=== PATIENT | female | born 1995 | race Caucasian/White ===

== ENCOUNTER 2017-03-17 14:12 | Emergency (ER) | payer MEDICAID ==
[~2017-03-17] VITALS: Ht 157.5 cm; Wt 79.0 kg
[~2017-03-17 14:12] MED LIST: IBUP-1223 PO; OMEP20CA9 PO; OXYC-302 PO; PREN1TAB60 PO
[2017-03-17 15:39] LABS: BASOPHILS # (AUTO) 0.02 x10^3/uL (0-0.1); BASOPHILS % (AUTO) 0 % (0-1); EOSINOPHILS # (AUTO) 0.24 x10^3/uL (0-0.4); EOSINOPHILS % (AUTO) 3 % (1-7); LYMPHOCYTES # (AUTO) 2.11 x10^3/uL (1-3.4); LYMPHOCYTES % (AUTO) 30 % (22-44); MD NO; MEAN CORPUSCULAR HEMOGLOBIN 29.6 pg (27.0-34.8); MEAN CORPUSCULAR HGB CONC 33.8 g/dL (32.4-35.8); MEAN CORPUSCULAR VOLUME 87.5 fL (80-100); MEAN PLATELET VOLUME 8.9 fL (7.4-10.4); MONOCYTES # (AUTO) 0.57 x10^3/uL (0.2-0.8); MONOCYTES % (AUTO) 8 % (2-9); NEUTROPHILS # (AUTO) 4.21 x10^3/uL (1.8-6.8); NEUTROPHILS % (AUTO) 59 % (42-75); PLATELET COUNT 267 x10^3/uL (130-400); RED BLOOD COUNT 5.02 x10^6/uL (3.82-5.3); RED CELL DISTRIBUTION WIDTH 11.9 % (9.6-15.2)
[2017-03-17 15:47] LABS: CULTURE INDICATED? YES; MICROSCOPIC INDICATED
[2017-03-17 16:07] LABS: ALBUMIN 3.8 g/dL (3.4-5.0); ANION GAP 9 mmol/L (5-15); CALCIUM 9.5 mg/dL (8.5-10.1); CHLORIDE 106 mmol/L (98-107)
[2017-03-17 16:25] LABS: ALANINE AMINOTRANSFERASE 23 U/L (12-78); ALKALINE PHOSPHATASE 62 U/L (45-117); BILIRUBIN,TOTAL 0.2 mg/dL (0.2-1.0); CREATININE 0.61 mg/dL (0.55-1.02); TOTAL PROTEIN 8.4 g/dL (6.4-8.2)
[2017-03-17 16:53] VITALS: BP 108/71
== END 2017-03-17 16:56 | disposition home or self-care (01) ==
LOC: ED 16:50
DX: O20.0 Threatened abortion (principal); Z3A.11 11 weeks gestation of pregnancy
CPT/HCPCS: 36415; 76801; 80053; 81001; 84702; 85025; 86901; 87086; 99285

== ENCOUNTER 2017-07-06 16:44 | Observation (INO) | payer MEDICAID ==
[~2017-07-06] VITALS: Ht 157.5 cm; Wt 86.3 kg
[2017-07-06] MEDS ORDERED: TERBUTALINE 1 MG/ML, 1ML ONE (17:07)
[2017-07-06] MEDS ORDERED: TERBUTALINE 1 MG/ML, 1ML SQ ONE (17:30)
[2017-07-06] MEDS ORDERED: LACTATED RINGERS 1,000 ML IV SCH (17:30)
[2017-07-06] MEDS ORDERED: LACTATED RINGERS 1,000 ML IVBOLUS ONE (17:30)
[2017-07-06 17:32] VITALS: BP 116/60
[2017-07-06 18:11] LABS: CULTURE INDICATED? NO; MICROSCOPIC NOT IND
[2017-07-09] MEDS ORDERED: PREN1TAB60 PO (19:01)
[2017-07-09] MEDS ORDERED: OMEP10CA4 PO (19:07)
== END 2017-07-06 18:35 | disposition home or self-care (01) ==
LOC: LDOP 16:44 → LDIP 17:12
PROVIDERS: ADMIT Obstetrics & Gynecology; ATTEND Obstetrics & Gynecology
DX: O26.892 Other specified pregnancy related conditions, second trimester (principal); R10.9 Unspecified abdominal pain; Z3A.27 27 weeks gestation of pregnancy
CPT/HCPCS: 59025; 81003; 84112; 96360; 96372; G0378; J3105; J7120; 96361

== ENCOUNTER 2017-07-31 14:45 | Outpatient (CLI) | payer MEDICAID ==
[~2017-07-31] VITALS: Ht 157.5 cm; Wt 86.4 kg
[~2017-07-31 14:45] MED LIST changes: +OMEP10CA4 PO
[2017-07-31 15:39] VITALS: BP 123/78
[2017-07-31 16:23] LABS: MICROSCOPIC INDICATED
== END 2017-07-31 16:56 | disposition home or self-care (01) ==
LOC: LDOP 14:45
PROVIDERS: ATTEND Obstetrics & Gynecology
DX: O26.893 Other specified pregnancy related conditions, third trimester (principal); R10.9 Unspecified abdominal pain; Z3A.30 30 weeks gestation of pregnancy
CPT/HCPCS: 59025; 81001; 84112; 99211; G0463

== ENCOUNTER 2017-09-12 19:51 | Observation (INO) | payer MEDICAID ==
[~2017-09-12] VITALS: Ht 157.5 cm; Wt 91.0 kg
[2017-09-12] MEDS ORDERED: OXYTOCIN 30U/ 0.9% NaCL 500ML 500 ML IV ONE (19:59)
[2017-09-12] MEDS ORDERED: D5%-LACTATED RINGERS 1,000 ML IV SCH (19:59)
[2017-09-12] MEDS ORDERED: LACTATED RINGERS 1,000 ML IV SCH (19:59)
[2017-09-12] MEDS ORDERED: FENTANYL PF 100 MCG/2ML IV PRN (20:00)
[2017-09-12] MEDS ORDERED: FENTANYL PF 100 MCG/2ML IVPush PRN (20:00)
[2017-09-12] MEDS ORDERED: ONDANSETRON 2MG/ML, 2ML IVPush PRN (20:00)
[2017-09-12] MEDS ORDERED: CALCIUM CARBONATE 500 MG TAB.CHEW PO PRN (20:00)
[2017-09-12] MEDS ORDERED: NEWBORN KIT ONE (20:05)
[2017-09-12] MEDS ORDERED: LIDOCAINE/PF 1%, 30ML ONE (20:05)
[2017-09-12] MEDS ORDERED: MISOPROSTOL 200 MCG TABLET ONE (20:05)
[2017-09-12] MEDS ORDERED: OXYTOCIN 30U/ 0.9% NaCL 500ML 500 ML ONE (20:05)
[2017-09-12] MEDS ORDERED: ONDANSETRON ODT 4 MG ONE (20:18)
[2017-09-12 20:24] LABS: BASOPHILS % (AUTO) 0 % (0-1); EOSINOPHILS # (AUTO) 0.19 x10^3/uL (0-0.4); EOSINOPHILS % (AUTO) 2 % (1-7); LYMPHOCYTES # (AUTO) 1.93 x10^3/uL (1-3.4); LYMPHOCYTES % (AUTO) 23 % (22-44); MD NO; MEAN CORPUSCULAR HEMOGLOBIN 25.4 pg (27.0-34.8); MEAN CORPUSCULAR HGB CONC 31.7 g/dL (32.4-35.8); MEAN CORPUSCULAR VOLUME 80.1 fL (80-100); MEAN PLATELET VOLUME 9.1 fL (7.4-10.4); MONOCYTES # (AUTO) 0.73 x10^3/uL (0.2-0.8); MONOCYTES % (AUTO) 9 % (2-9); NEUTROPHILS # (AUTO) 5.58 x10^3/uL (1.8-6.8); NEUTROPHILS % (AUTO) 66 % (42-75); PLATELET COUNT 221 x10^3/uL (130-400); RED BLOOD COUNT 4.15 x10^6/uL (3.82-5.3); RED CELL DISTRIBUTION WIDTH 14.2 % (9.6-15.2)
[2017-09-12] MEDS ORDERED: PLEASE ENTER HEIGHT AND WEIGHT MC SCH (20:30)
[2017-09-16] MEDS ORDERED: OXYC-302 PO (10:40)
[2017-09-16] MEDS ORDERED: IBUP-1222 PO (10:40)
== END 2017-09-13 00:45 | disposition home or self-care (01) ==
LOC: LDOP 19:51 → LDIP 20:04 → INTOOBSV 20:04
PROVIDERS: ADMIT Obstetrics & Gynecology; ATTEND Obstetrics & Gynecology
DX: O62.9 Abnormality of forces of labor, unspecified (principal); O26.893 Other specified pregnancy related conditions, third trimester; R10.9 Unspecified abdominal pain; Z3A.00 Weeks of gestation of pregnancy not specified
CPT/HCPCS: 36415; 59025; 85025; 86850; 86870; 86900; G0378; 99211; G0463

== ENCOUNTER 2017-12-12 17:51 | Emergency (ER) | payer MEDICAID ==
[~2017-12-12] VITALS: Ht 157.5 cm; Wt 89.2 kg
[~2017-12-12 17:51] MED LIST changes: +IBUP-1222 PO
[2017-12-12 18:50] VITALS: BP 123/82
[2017-12-12 19:07] LABS: MICROSCOPIC INDICATED
[2017-12-12 19:08] LABS: CULTURE INDICATED? YES; HCG UR SG 1.036 (1.003-1.030)
== END 2017-12-12 19:33 | disposition home or self-care (01) ==
LOC: ED 19:31
DX: N93.8 Other specified abnormal uterine and vaginal bleeding (principal)
CPT/HCPCS: 81001; 81025; 87086; 87147; 99284

== ENCOUNTER 2019-02-02 18:07 | Emergency (ER) | payer MEDICAID, OTHER ==
[~2019-02-02] VITALS: Ht 157.5 cm; Wt 93.6 kg
[~2019-02-02 18:07] MED LIST changes: -OMEP10CA4 PO; +OMEP10CA5 PO
[2019-02-02 18:39] VITALS: BP 127/73
--- NOTE | 2019-02-02 19:11 | NUR ---
plug paster: Pt ambulated independently to ED room 13 from [facility] in [facility] at this time.
[2019-02-02 20:29] LABS: MICROSCOPIC AUTO
[2019-02-02 20:31] LABS: CULTURE INDICATED? YES
[2019-02-02 20:45] LABS: BASOPHILS # (AUTO) 0.01 x10^3/uL (0-0.1); BASOPHILS % (AUTO) 0 % (0-1); EOSINOPHILS # (AUTO) 0.23 x10^3/uL (0-0.4); EOSINOPHILS % (AUTO) 5 % (1-7); LYMPHOCYTES # (AUTO) 1.77 x10^3/uL (1-3.4); LYMPHOCYTES % (AUTO) 35 % (22-44); MD NO; MEAN CORPUSCULAR HEMOGLOBIN 28.4 pg (27.0-34.8); MEAN CORPUSCULAR HGB CONC 33.8 g/dL (32.4-35.8); MEAN CORPUSCULAR VOLUME 84.1 fL (80-100); MEAN PLATELET VOLUME 8.7 fL (7.4-10.4); MONOCYTES # (AUTO) 0.55 x10^3/uL (0.2-0.8); MONOCYTES % (AUTO) 11 % (2-9); NEUTROPHILS # (AUTO) 2.53 x10^3/uL (1.8-6.8); NEUTROPHILS % (AUTO) 50 % (42-75); PLATELET COUNT 287 x10^3/uL (130-400); RED BLOOD COUNT 5.12 x10^6/uL (3.82-5.3); RED CELL DISTRIBUTION WIDTH 12.6 % (9.6-15.2)
[2019-02-02 20:57] LABS: ALANINE AMINOTRANSFERASE 27 U/L (12-78); ALBUMIN 3.7 g/dL (3.4-5.0); ANION GAP 4 mmol/L (5-15); CALCIUM 8.7 mg/dL (8.5-10.1); CHLORIDE 111 mmol/L (98-107); CREATININE 0.77 mg/dL (0.55-1.02)
[2019-02-02 21:01] LABS: ALKALINE PHOSPHATASE 75 U/L (45-117); BILIRUBIN,TOTAL 0.4 mg/dL (0.2-1.0); TOTAL PROTEIN 7.7 g/dL (6.4-8.2)
== END 2019-02-02 21:22 | disposition home or self-care (01) ==
LOC: ED 20:00
DX: N30.01 Acute cystitis with hematuria (principal); R11.0 Nausea
CPT/HCPCS: 36415; 80053; 81001; 83690; 84703; 85025; 87086; 93005; 99284

== ENCOUNTER 2019-12-20 11:57 | Emergency (ER) | payer SELFPAY ==
[~2019-12-20] VITALS: Ht 157.5 cm; Wt 89.9 kg
[2019-12-20 12:05] VITALS: BP 125/64
--- NOTE | 2019-12-20 12:18 | NUR ---
SUNDAY FALK AT BEDSIDE FOR INITIAL ASSESSMENT.
[2019-12-20] MEDS ORDERED: ONDANSETRON 2MG/ML, 2ML IVPush ONE (12:30)
[2019-12-20] MEDS ORDERED: MORPHINE SULFATE 4 MG/ML, 1ML IVPush PRN (12:30)
[2019-12-20] MEDS ORDERED: SODIUM CHLORIDE FLUSH 10ML SYR IVF ONE (12:30)
--- NOTE | 2019-12-20 12:30 | NUR ---
late entry for 1230: pt presents to ED with c/o right lower abd pain and vag bleeding onset this am, pt states lmp 2 weeks ago. pt has hx tubal ligation. pt is a&o, resps even and unlabored. nadn. pt updated with POC, agreeable.
--- NOTE | 2019-12-20 12:42 | NUR ---
PT TO US AT THIS TIME. PT AGREES TO WAIT UNTIL RETURN TO BE MEDICATED WITH MORPHINE/ZOFRAN.
[2019-12-20 13:22] LABS: MICROSCOPIC INDICATED
[2019-12-20] MEDS ORDERED: ONDANSETRON 2MG/ML, 2ML ONE (13:23)
[2019-12-20] MEDS ORDERED: MORPHINE SULFATE 4 MG/ML, 1ML ONE (13:23)
--- NOTE | 2019-12-20 13:30 | NUR ---
upon return from US, pt declining pain medicine. pt is a&o, resps even and unlabored. dion. lab at bedside for draw.
[2019-12-20 13:42] LABS: BASOPHILS % (AUTO) 0 % (0-1); EOSINOPHILS % (AUTO) 2 % (1-7); LYMPHOCYTES % (AUTO) 20 % (22-44); MONOCYTES % (AUTO) 5 % (2-9); NEUTROPHILS % (AUTO) 72 % (42-75); PLATELET COUNT 269 x10^3/uL (130-400); RED BLOOD COUNT 4.76 x10^6/uL (3.82-5.3); RED CELL DISTRIBUTION WIDTH 13.3 % (9.6-15.2)
[2019-12-20 13:44] LABS: MD NO
[2019-12-20 13:51] LABS: ALBUMIN 3.7 g/dL (3.4-5.0); ANION GAP 6 mmol/L (5-15); CALCIUM 9.3 mg/dL (8.5-10.1); CHLORIDE 110 mmol/L (98-107); CREATININE 0.85 mg/dL (0.55-1.02)
[2019-12-20] MEDS ORDERED: KETOROLAC 30 MG/1 ML IM ONE (14:00)
--- NOTE | 2019-12-20 14:53 | NUR ---
TASK RN: DC EDUCATION PROVIDED, PT DEMONSTRATES UNDERSTANDING. PT AMBULATED STEADILY TO DC WITH RN
== END 2019-12-20 14:55 | disposition home or self-care (01) ==
LOC: ED 12:37
DX: N93.8 Other specified abnormal uterine and vaginal bleeding (principal); R11.2 Nausea with vomiting, unspecified; R10.31 Right lower quadrant pain; Z98.51 Tubal ligation status
CPT/HCPCS: 36415; 76830; 80048; 81001; 82040; 84703; 85025; 87086; 99284